=== PATIENT | male | born 1965 | race African-American/Black ===

== ENCOUNTER 2022-08-20 15:20 | Emergency (ER) | payer BC, OTHER ==
[~2022-08-20] VITALS: Ht 172.7 cm; Wt 94.0 kg
[2022-08-20] MEDS ORDERED: MELOXICAM7.5 MG PO (16:41)
[2022-08-20] MEDS ORDERED: CYCLOBENZAPRINE5 MG PO (16:41)
== END 2022-08-20 16:49 | disposition home or self-care (01) ==
LOC: FSED 15:30
DX: M54.2 Cervicalgia (principal); M25.511 Pain in right shoulder; X50.9XXA Other and unspecified overexertion or strenuous movements or postures, initial encounter; Y92.89 Other specified places as the place of occurrence of the external cause; J45.909 Unspecified asthma, uncomplicated
CPT/HCPCS: 72050; 99283